=== PATIENT | female | born 1980 | race Caucasian/White ===

== ENCOUNTER 2016-04-13 19:29 | Emergency (ER) | payer OTHER ==
[2016-04-13 19:43] VITALS: BP 124/78; PULSE 97; TEMP 98; BMI 34.0
--- NOTE | 2016-04-13 20:16 | EDPRACDOC ---
- General Information Chief Complaint: Headache Stated Complaint: RIGHT SIDED WEAKNESS/NUMBNESS RIGHT FACIAL Time Seen by Provider: 04/13/16 19:45 Information Source: Patient Home Medications: Home Medications Ascorbic Acid [Vitamin C] 500 mg PO DAILY 01/01/15 Calcium Carbonate/Vitamin D3 [Calcium 600 + Vit D 800 Tab] 1 tab PO DAILY ClonazePAM [Klonopin] 0.5 mg PO BID PRN 01/01/15 Cyanocobalamin (Vitamin B-12) [B-12] 1,000 mcg PO DAILY 01/01/15 Ferrous Sulfate [Feosol] 325 mg PO DAILY 01/01/15 Lisinopril [Prinivil] 5 mg PO DAILY 01/01/15 Escitalopram Oxalate [Lexapro] 20 mg PO DAILY 08/06/15 Butalb/Acetamin/Caffeine [Fioricet] 1 tab PO DAILY PRN 11/02/15 Doxycycline Hyclate 100 mg PO .BID X 10D 11/02/15 Gabapentin [Neurontin] 300 mg PO DAILY 11/02/15 Ondansetron [Zofran Odt] 4 mg PO Q6H #30 tab.rapdis 11/02/15 Oxycodone Immediate Release [Oxycodone Immediate Release (OxyIR)] 5 mg PO Q6H PRN #15 tab 11/02/15 Tizanidine HCl [Zanaflex] 4 mg PO TID PRN 11/02/15 Meloxicam [Mobic] 7.5 mg PO BID #20 tab 04/13/16 Tramadol HCl [Ultram] 50 mg PO Q4-6H #10 tablet 04/13/16 Allergies/Adverse Reactions: Allergies Allergy/AdvReac Type Severity Reaction Status Date / Time cefuroxime axetil Allergy Anaphylaxis Verified 04/13/16 19:42 [From Ceftin] * Sulfa (Sulfonamide Allergy Unknown Verified 04/13/16 19:42 Antibiotics) cinibac Allergy Difficulty Uncoded 04/13/16 19:42 Breathing - History of Present Illness Onset: 1829 HPI: PT PRESENTS TODAY WITH [facility] MIGRAINE SEALS X 3 HOURS. PT STATES SHE HAS TAKEN FIORECET AND ZOFRAN WITH SOME RELIEF. HAS PMH OF MIGRAINES. NO DIFFERENT THAN USUAL. PT ALSO STATES NECK PAIN WITH NUMBNESS RADIATING DOWN RIGHT ARM. YEARS AGO HAD MRI OF NECK THAT SHOWED BULGING DISCS. NO OTHER COMPLAINTS. Location: Reports: Parietal Pain Quality: Reports: Moderate, Throbbing, Like Previous Headaches Relevant History of: Reports: Known Headache disorder Associated Signs and Symptoms: Reports: Chronic Headaches ED Past Medical History - History Reviewed Yes Nurses notes reviewed and agree except as marked - Patient Medical History Cardiac History: Reports: Hypertension, Hypercholesterolemia Psychological History: Denies: Depression Systemic History: Reports: Diabetes Additional Past Medical History: SHANNON PICKS DISEASE WITH SPLENECTOMY Surgical History: Reports: Other (SPLENECTOMY). Denies: Hysterectomy - Social Medical History Smoking Status: Never smoker EDM Review of Systems - Review of Systems ROS Negative Except as Marked: Yes All systems reviewed and were negative except as marked Constitutional: No Symptoms Reported Ears: No Symptoms Reported Throat: No Symptoms Reported Nose: No Symptoms Reported Respiratory: No Symptoms Reported Cardiovascular: No Symptoms Reported Gastrointestinal: No Symptoms Reported Neurological: Headache, Numbness Musculoskeletal: No Symptoms Reported Integumentary: No Symptoms Reported - Physical Exam Constitutional: Alert (Awake), No apparent distress Oriented to: Time, Person, Place Last recorded Vital Signs: Last Vital Signs Temp 98 F 04/13/16 19:35 Pulse 97 04/13/16 19:35 Resp 20 04/13/16 19:35 BP 124/78 04/13/16 19:35 Pulse Ox 98 04/13/16 19:35 Oxygen Pulse Oxygen Saturation 98 O2 Device Room Air Oxygen Flow Rate Fraction of Inspired Oxygen ( FIO2) - HEENT Head: Normal Eye Exam: Normal Oropharynx: Normal Tympanic Membrane: Normal ENT EAC: Normal Nose: No Symptoms Reported Neck: Midline, Paraspinal Tenderness - Respiratory/Cardiovascular Respiratory: Normal - CTA Cardiovascular: Normal - GI Palpation: Normal Tenderness: Non tender - Musculoskeletal Back: Normal Extremities: Normal - Integumentary Skin: Normal Lymphatics: Normal - Neurologic Cerebellar: Normal Mood Description: Normal Thought: Coherent Perception: Normal Decision Time to Discharge: 20:15 - Departure Disposition: Home Condition: Good Final Diagnosis: Migraine, Cervical radiculopathy Instructions: Migraine Headache (ED) Education/Counseling Given To: Patient Education/Counseling Given Regarding: Diagnosis, Treatment, Follow Up Referrals: Afsaneh Park MD [Primary Care Provider] - One Week Prescriptions: New Meloxicam [Mobic] 7.5 mg PO BID #20 tab Tramadol HCl [Ultram] 50 mg PO Q4-6H #10 tablet No Action Ferrous Sulfate [Feosol] 325 mg PO DAILY Cyanocobalamin (Vitamin B-12) [B-12] 1,000 mcg PO DAILY Calcium Carbonate/Vitamin D3 [Calcium 600 + Vit D 800 Tab] 1 tab PO DAILY Lisinopril [Prinivil] 5 mg PO DAILY ClonazePAM [Klonopin] 0.5 mg PO BID PRN PRN Reason: Anxiety Ascorbic Acid [Vitamin C] 500 mg PO DAILY Escitalopram Oxalate [Lexapro] 20 mg PO DAILY Gabapentin [Neurontin] 300 mg PO DAILY Butalb/Acetamin/Caffeine [Fioricet] 1 tab PO DAILY PRN PRN Reason: Migraine Headache Doxycycline Hyclate 100 mg PO .BID X 10D Tizanidine HCl [Zanaflex] 4 mg PO TID PRN PRN Reason: Pain Ondansetron [Zofran Odt] 4 mg PO Q6H #30 tab.rapdis Oxycodone Immediate Release [Oxycodone Immediate Release (OxyIR)] 5 mg PO Q6H PRN #15 tab PRN Reason: Pain Additional Instructions: HEATING PADS TO [facility]Y MUSCLES FOR ADDITIONAL RELIEF. FOLLOW UP WITH PCP REGARDING NECK PAIN AND MIGRAINES.
== END 2016-04-13 20:21 | disposition home or self-care (01) ==
LOC: EDMC 19:29
DX: G43.909 Migraine, unspecified, not intractable, without status migrainosus (principal); M54.12 Radiculopathy, cervical region
CPT/HCPCS: 99282